=== PATIENT | female | born 1985 | race Caucasian/White ===

== ENCOUNTER 2018-07-11 10:30 | Emergency (ER) | payer OTHER ==
[2018-07-11 10:44] VITALS: BP 123/81; PULSE 65; RESP 16; TEMP 98.1
--- NOTE | 2018-07-11 12:33 | US ---
EXAMINATION TYPE: US venous doppler duplex LE LT DATE OF EXAM: 07/11/2018 11:59 AM COMPARISON: NONE CLINICAL HISTORY: 33 year old female pain left knee x 2 months. No Hx DVT. SIDE PERFORMED: Left TECHNIQUE: The lower extremity deep venous system is examined utilizing real time linear array sonog ynes with graded compression, doppler sonography and color-flow sonography. FINDINGS: VESSELS IMAGED: Common Femoral Vein (some technical artifacts within the vessel confirmed with the training sonograph er) Deep Femoral Vein Greater Saphenous Vein * Femoral Vein Popliteal Vein Small Saphenous Vein * Proximal Calf Veins Posterior tibial veins (* superficial vessels) Left Leg: Negative for DVT IMPRESSION: No evidence for DVT within the left lower extremity.
--- NOTE | 2018-07-11 12:43 | XR ---
EXAMINATION TYPE: XR knee complete LT DATE OF EXAM: 07/11/2018 COMPARISON: NONE HISTORY: 33 year-old female left knee pain TECHNIQUE: 3 views FINDINGS: No acute fracture, subluxation, or dislocation. Extensor mechanism appears intact. No sizable joint e ffusion seen. IMPRESSION: No acute osseous abnormality seen.
--- NOTE | 2018-07-11 12:54 | ED ---
General Adult HPI - General Chief complaint: Extremity Injury, Lower Stated complaint: lt knee/leg pain Time Seen by Provider: 07/11/18 10:52 Source: patient, RN notes reviewed, old records reviewed Mode of arrival: ambulatory Limitations: no limitations - History of Present Illness Initial comments: 33-year-old female presents for evaluation of left knee pain and left lower extremity swelling. Symptoms have progressed over the past several months. Denies any trauma. Patient is on her feet throughout the day with her job. She has history of chronic low back pain and sciatica, states this is different. Denies any numbness or tingling. Denies history of DVT or PE. No other complaints. No fever or chills. - Related Data Home Medications Medication Instructions Recorded Confirmed Acetaminophen [Tylenol Extra 500 mg PO Q6H PRN 07/11/18 07/11/18 Strength] Gabapentin [Neurontin] 300 mg PO TID 07/11/18 07/11/18 Allergies Allergy/AdvReac Type Severity Reaction Status Date / Time No Known Allergies Allergy Verified 07/11/18 11:08 Review of Systems ROS Statement: Those systems with pertinent positive or pertinent negative responses have been documented in the HPI. ROS Other: All systems not noted in ROS Statement are negative. Past Medical History Additional Past Medical History / Comment(s): Chronic back pain History of Any Multi-Drug Resistant Organisms: None Reported Past Surgical History: No Surgical Hx Reported Past Psychological History: No Psychological Hx Reported Smoking Status: Current every day smoker Past Alcohol Use History: None Reported Past Drug Use History: None Reported General Exam Limitations: no limitations General appearance: alert, in no apparent distress Head exam: Present: atraumatic, normocephalic Eye exam: Present: normal appearance, PERRL Neck exam: Present: normal inspection. Absent: tenderness, meningismus Respiratory exam: Present: normal lung sounds bilaterally. Absent: respiratory distress, wheezes Cardiovascular Exam: Present: regular rate, normal rhythm GI/Abdominal exam: Present: soft. Absent: distended, tenderness, guarding Extremities exam: Present: other (Symmetric lower extremity exam, normal pulse exam, no significant swelling, range of motion through ankle, knee, hip within normal limits.). Absent: pedal edema, joint swelling Neurological exam: Present: alert, oriented X3, CN II-XII intact, normal gait. Absent: motor sensory deficit Psychiatric exam: Present: normal affect, normal mood Skin exam: Present: warm, dry, intact. Absent: cyanosis, diaphoretic Course Vital Signs 07/11/18 10:40 Temperature 98.1 F Pulse Rate 65 Respiratory 16 Rate Blood Pressure 123/81 O2 Sat by Pulse 97 Oximetry Medical Decision Making - Medical Decision Making 33-year-old female with atraumatic left knee pain. Negative examination, negative x-ray for any acute bony abnormality, DVT study negative for acute DVT. Patient can follow up with primary care physician. She will be given follow- up to orthopedics on as-needed basis. She will take Motrin for pain. Disposition Clinical Impression: Knee pain Disposition: HOME SELF-CARE Condition: Good Instructions (If sedation given, give patient instructions): Knee Pain (ED) Is patient prescribed a controlled substance at d/c from ED?: No Referrals: Jyoti Arellano DO [Primary Care Provider] - 1-2 days Bhavesh Block DO [Medical Doctor] - 1-2 days Time of Disposition: 12:53
== END 2018-07-11 13:10 | disposition home or self-care (01) ==
LOC: EC 10:30
DX: M25.562 Pain in left knee (principal); F17.200 Nicotine dependence, unspecified, uncomplicated; Z79.899 Other long term (current) drug therapy
CPT/HCPCS: 99284